=== PATIENT | female | born 1975 | race Caucasian/White ===

== ENCOUNTER 2020-03-31 13:00 | Emergency (ER) | payer MEDICAID, SELFPAY ==
[~2020-03-31] VITALS: Ht 167.6 cm; Wt 88.9 kg
[2020-03-31 13:07] VITALS: BP 172/99
--- NOTE | 2020-03-31 13:14 | NUR ---
Pt moved to bed 2 from triage.
--- NOTE | 2020-03-31 13:15 | NUR ---
CALLED MONITOR TECHNICIAN CARLA FOR CODE BRAIN PER DR. WALLACE.
--- NOTE | 2020-03-31 13:32 | NUR ---
RETURNED FROM CT SCAN AND PLACED PT IN BED 2. CONNECTED TO SKIP HOIST ENGINEER, PULSE OXIMETRY.
--- NOTE | 2020-03-31 13:42 | NUR ---
Dr. Isaacs radiologist speaking with Dr. Flanagan.
[2020-03-31] MEDS ORDERED: HYDROcodone/APAP 5/325 MG 1 TAB TAB PO ONE (14:05)
[2020-03-31 14:30] LABS: BASOPHILS # (AUTO) 0.1 K/uL (0.00-0.22); BASOPHILS % (AUTO) 0.9 % (0.0-2.0); EOSINOPHILS # (AUTO) 0.1 K/uL (0-0.4); EOSINOPHILS % (AUTO) 1.4 % (0.0-4.0); HEMATOCRIT 39.8 % (36-48); HEMOGLOBIN 13.4 g/dL (12.0-16.0); LYMPHOCYTES # (AUTO) 2.5 K/uL (2.5-16.5); LYMPHOCYTES % (AUTO) 35.2 % (20.5-51.1); MEAN CORPUSCULAR HEMOGLOBIN 30 pg (27-31); MEAN CORPUSCULAR HGB CONC 34 g/dL (33-37); MEAN CORPUSCULAR VOLUME 88.1 fL (80-94); MONOCYTES # (AUTO) 0.4 K/uL (0.8-1.0); MONOCYTES % (AUTO) 5.2 % (1.7-9.3); NEUTROPHILS % (AUTO) 57.3 % (42.2-75.2); PLATELET COUNT (AUTO) 267 K/uL (140-450); RED BLOOD CELL COUNT(AUTO) 4.52 MIL/uL (4.20-5.40); RED CELL DISTRIBUTION WIDTH 13.7 % (11.6-13.7)
--- NOTE | 2020-03-31 14:40 | NUR ---
ZAINAB SWAB DONE. WALKED TO LAB
--- NOTE | 2020-03-31 14:51 | NUR ---
Bridget chase in ED - 03/31/20 at 1451 by [facility] annmarie swab done. specimen walked to lab.
[2020-03-31 14:55] LABS: ANION GAP 11.5 (8-16); CREATININE 0.5 mg/dL (0.6-1.3); POTASSIUM 3.5 mmol/L (3.5-5.1)
[2020-03-31 15:01] LABS: ALBUMIN 4.1 g/dL (3.4-5.0); TOTAL BILIRUBIN 0.3 mg/dL (0.0-1.0)
[2020-03-31] MEDS ORDERED: DEXAMETHASONE 10 MG/ML VIAL IVP ONE (15:45)
[2020-03-31] MEDS ORDERED: MORPHINE SULFATE 4 MG/ML SYR IVP ONE (17:45)
[2020-03-31] MEDS ORDERED: ONDANSETRON 4 MG/2 ML VIAL IVP ONE (17:45)
--- NOTE | 2020-03-31 19:10 | NUR ---
REPORT RECEIVED FROM TRINY CANO
--- NOTE | 2020-03-31 19:11 | NUR ---
REPORT GIVEN TO KATHY. ALL CARE TRANSFERRED AT THIS TIME.
--- NOTE | 2020-03-31 20:00 | NUR ---
ASSISTED UP TO BR, BACK TO BED AND MADE COMFORTABLE. AWAITING TRANSFER ARRANGEMENTS
[2020-03-31] MEDS ORDERED: levETIRAcetam 1,000 MG in NACL 0.9% 100 ML IV ONE (23:05)
[2020-03-31] MEDS ORDERED: levETIRAcetam 100 MG/ML VIAL IV ONE (23:35)
--- NOTE | 2020-03-31 23:58 | NUR ---
ASSISTED UP TO BR. DENIES PAIN OR DISCOMFORT AT THIS TIME
[2020-04-01] MEDS ORDERED: ATOR10TA PO (00:19)
[2020-04-01] MEDS ORDERED: ORE25 PO (00:22)
--- NOTE | 2020-04-01 04:00 | NUR ---
Patient appears to be resting comfortably in bed. Vital Signs within normal limits. Respirations even and unlabored.
--- NOTE | 2020-04-01 05:53 | NUR ---
Dr. Hicks examining patient.
--- NOTE | 2020-04-01 06:00 | NUR ---
AWAKE AND ALERT. HAS BEEN SLEEPING ON AND OFF . IS NOW AWAKE AND ALERT WOITHOUT COMPLAINTS.
--- NOTE | 2020-04-01 07:07 | NUR ---
Report received from TRINY Duarte, care transfer to myself at this time.
--- NOTE | 2020-04-01 07:32 | NUR ---
Pt repositioned in bed for comfort, lights dimmed, VSS, will continue to monitor.
[2020-04-01] MEDS ORDERED: MORPHINE SULFATE 4 MG/ML SYR IVP ONE ×2 (07:40→14:15)
--- NOTE | 2020-04-01 07:59 | NUR ---
Breakfast tray provided, Hob elevated.
--- NOTE | 2020-04-01 10:32 | NUR ---
Pt sleeping, visual equal rise and fall of chest, VSS, will continue to monitor.
--- NOTE | 2020-04-01 12:38 | NUR ---
ROUNDED ON PATIENT. PT COMFORTABLE IN BED, EATING LUNCH. ALL NEEDS ADDRESSED.
--- NOTE | 2020-04-01 14:12 | NUR ---
Pt HOB lowered for comfort, pain 9/10 to head requeseting medication per MD order.
[2020-04-01] MEDS ORDERED: ONDANSETRON 4 MG/2 ML VIAL IVP ONE (15:20)
--- NOTE | 2020-04-01 19:10 | NUR ---
RECEIVED REPOR FROM TRINY MONTIEL
--- NOTE | 2020-04-01 19:18 | NUR ---
Gave report to TRINY Duarte, transfered all care at this time.
--- NOTE | 2020-04-01 19:45 | NUR ---
RESTING IN BED, RESPIRATIONS REGULAR AND UNLABORED. SPEAKING ON CELL PHONE.
--- NOTE | 2020-04-01 22:47 | NUR ---
TO BE TRANSFERED TO [facility] [place]. ARRANGEMENTS BEING MADE FOR TRANSPORT
--- NOTE | 2020-04-01 22:55 | NUR ---
attempting to [place] [facility] [place] answer
--- NOTE | 2020-04-01 23:03 | NUR ---
REPORT GIVEN TO TRINY MARIE AT [facility] [place]
--- NOTE | 2020-04-01 23:14 | NUR ---
TRANSFERED TO [place], AWAITING TRANSPORT [place] [facility] [place] PT HAS BEEN INFORMED REGARDING TRANSFER AND PLAN OF CARE
--- NOTE | 2020-04-01 23:15 | NUR ---
[facility] HERE FOR TRANSPORT
[2020-04-01 23:25] VITALS: BP 128/76
== END 2020-04-01 23:25 | disposition short-term general hospital (02) ==
LOC: MED 13:00
DX: O71.9 Obstetric trauma, unspecified (principal); R51.9 Headache, unspecified; R20.2 Paresthesia of skin; E78.5 Hyperlipidemia, unspecified; I10 Essential (primary) hypertension; I63.9 Cerebral infarction, unspecified; Z20.828 Contact with and (suspected) exposure to other viral communicable diseases
CPT/HCPCS: 36415; 70450; 71045; 80053; 84484; 85025; 85610; 85730; 87426; 93005; 96365; 96375; 99291; J1100; J1953; J2270; J2405

== ENCOUNTER 2022-02-17 11:40 | Emergency (ER) | payer MEDICAID ==
[~2022-02-17] VITALS: Ht 160 cm; Wt 92.7 kg
[~2022-02-17 11:40] MED LIST: ATOR10TA PO; HYDR-4004 PO
[2022-02-17 11:44] VITALS: BP 149/96
--- NOTE | 2022-02-17 12:05 | NUR ---
ALANA MCGOWAN AT BEDSIDE FOR EVALUATION
[2022-02-17] MEDS ORDERED: CETI-403 PO ×2 (12:12→12:19)
[2022-02-17] MEDS ORDERED: PROM118S5 PO ×2 (12:12→12:19)
[2022-02-17] MEDS ORDERED: ACET-10509 PO ×2 (12:12→12:19)
--- NOTE | 2022-02-17 12:17 | NUR ---
pt swabbed for covid(annmarie). handed to lab Addendum: 02/17/22 at 1218 by [facility] and flu
[2022-02-17 12:25] VITALS: BP 149/96
--- NOTE | 2022-02-17 12:25 | NUR ---
Patient discharged with v/s stable. Written and verbal after care instructions given and explained. Patient alert, oriented and verbalized understanding of instructions. Ambulatory with steady gait. All questions addressed prior to discharge. ID band removed. Patient advised to follow up with PMD. Rx of TYLENOL XTRA STRENGTH, CETIRIZINE HCL AND PROMETHAZINE given. Opportunity to ask questions provided and answered. SANTHOSH ELIAS PROVIDED
== END 2022-02-17 12:25 | disposition home or self-care (01) ==
LOC: MED 11:40
DX: J06.9 Acute upper respiratory infection, unspecified (principal); Z20.822 Contact with and (suspected) exposure to COVID-19; I10 Essential (primary) hypertension; Z79.899 Other long term (current) drug therapy
CPT/HCPCS: 99283

== ENCOUNTER 2022-02-24 11:36 | Emergency (ER) | payer MEDICAID ==
[~2022-02-24] VITALS: Ht 166.4 cm; Wt 91.3 kg
[~2022-02-24 11:36] MED LIST changes: +ACET-10509 PO; +CETI-403 PO; +PROM118S5 PO
[2022-02-24 12:26] VITALS: BP 133/87
--- NOTE | 2022-02-24 12:55 | NUR ---
C/O HEADACHE, NOSEBLEED X 3 DAYS. SEEN HERE 1 WEEK AGO FOR VIRAL URI. FLU& COVID TESTED NEGATIVE 1 WEEK AGO. PMH: HTN
[2022-02-24] MEDS ORDERED: IBUP-2213 PO (13:06)
[2022-02-24] MEDS ORDERED: AMOX-999 PO (13:06)
--- NOTE | 2022-02-24 13:21 | NUR ---
Patient discharged with v/s stable. Written and verbal after care instructions given and explained. Patient alert, oriented and verbalized understanding of instructions. Ambulatory with steady gait. All questions addressed prior to discharge. ID band removed. Patient advised to follow up with PMD. Rx of AUGMENTIN, IBU given. Patient educated on indication of medication including possible reaction and side effects. Opportunity to ask questions provided and answered.
[2022-02-24 13:40] VITALS: BP 124/72
== END 2022-02-24 13:40 | disposition home or self-care (01) ==
LOC: MED 11:36
DX: J32.9 Chronic sinusitis, unspecified (principal); I10 Essential (primary) hypertension; E78.5 Hyperlipidemia, unspecified; Z79.899 Other long term (current) drug therapy
CPT/HCPCS: 81002; 81025; 99283

== ENCOUNTER 2023-06-07 10:27 | Emergency (ER) | payer MEDICAID, OTHER ==
[~2023-06-07] VITALS: Ht 165.1 cm; Wt 88.5 kg
[~2023-06-07 10:27] MED LIST changes: +AMOX-999 PO; +IBUP-2213 PO
[2023-06-07 11:01] VITALS: BP 137/94; PULSE 68; RESP 17; O2SAT 98
[2023-06-07] MEDS: DEXAMETHASONE 10 MG/ML VIAL IM ONE (12:04)
[2023-06-07] MEDS: FAMOTIDINE 20 MG TAB PO ONE (12:05)
[2023-06-07] MEDS ORDERED: DIPH-915 PO (13:26)
[2023-06-07] MEDS ORDERED: FAMO-90 PO (13:26)
[2023-06-07 13:42] VITALS: BP 109/79; PULSE 65; RESP 23; TEMP 98.3; O2SAT 98
== END 2023-06-07 13:42 | disposition home or self-care (01) ==
LOC: MED 10:27
DX: L50.9 Urticaria, unspecified (principal); I10 Essential (primary) hypertension; Z79.899 Other long term (current) drug therapy
CPT/HCPCS: 81025; 96372; 99283; J1100; Q0163